=== PATIENT | male | born 1955 | race American Indian/Alaskan Native ===

== ENCOUNTER 2021-01-06 18:01 | Emergency (ER) | payer OTHER ==
--- NOTE | 2021-01-06 22:02 | Emergency Department Report ---
ED Extremity Problem HPI - General Chief complaint: Extremity Injury, Upper Stated complaint: LT HIP PAIN Time Seen by Provider: 01/06/21 21:34 Source: patient Mode of arrival: Ambulatory Limitations: No Limitations - History of Present Illness Initial comments: Patient is a 65-year-old male who presents emergency room complaints of left hip pain that began 2 weeks ago. He denies any fall or injury. 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 He states that he is on his feet all day and frequently bends over. He denies any leg swelling, calf pain, numbness, weakness. He states that he feels the pain early in the morning and at night before he goes to bed. He states that his pain is worse when he first starts to stand up. No past medical history. No allergies to medications. He states he has not seen a doctor in approximately 4 to 5 years. - Related Data Previous Rx's Medication Instructions Recorded Last Taken Type Pantoprazole [Protonix TAB] 40 mg PO BID #60 tablet 09/18/14 Unknown Rx levoFLOXacin [Levaquin TAB] 500 mg PO QDAY #3 tablet 09/18/14 Unknown Rx Acetaminophen [Tylenol] 650 mg PO Q8HR PRN #20 capsule 01/06/21 Unknown Rx Menthol/Camphor [[place] 1 applicatio TP BID #18 oint...g. 01/06/21 Unknown Rx Ointment] amLODIPine 5 mg PO DAILY #30 tab 01/06/21 Unknown Rx methOCARBAMOL [Robaxin TAB] 500 mg PO BID PRN #14 tab 01/06/21 Unknown Rx Allergies Allergy/AdvReac Type Severity Reaction Status Date / Time No Known Allergies Allergy Unverified 09/15/14 17:00 ED Review of Systems ROS: Stated complaint: LT HIP PAIN Other details as noted in HPI Comment: All other systems reviewed and negative ED Past Medical Hx - Past Medical History Previous Medical History?: Yes Hx Hypertension: No Hx Congestive Heart Failure: No Hx Diabetes: No Hx Seizures: No Hx Asthma: Yes (as a child but outgrew) Hx COPD: No Hx HIV: No - Social History Smoking Status: Current Some Day Smoker - Medications Home Medications: Home Medications Medication Instructions Recorded Confirmed Last Taken Type Pantoprazole [Protonix TAB] 40 mg PO BID #60 tablet 01/20/15 Unknown Rx levoFLOXacin [Levaquin TAB] 500 mg PO QDAY #3 tablet 09/18/14 Unknown Rx Acetaminophen [Tylenol] 650 mg PO Q8HR PRN #20 capsule 01/06/21 Unknown Rx Menthol/Camphor [[place] 1 applicatio TP BID #18 oint...g. 01/06/21 Unknown Rx Ointment] amLODIPine 5 mg PO DAILY #30 tab 01/06/21 Unknown Rx methOCARBAMOL [Robaxin TAB] 500 mg PO BID PRN #14 tab 01/06/21 Unknown Rx ED Physical Exam - General Limitations: No Limitations General appearance: alert, in no apparent distress - Head Head exam: Present: atraumatic, normocephalic - Eye Eye exam: Present: normal appearance - ENT ENT exam: Present: mucous membranes moist - Respiratory Respiratory exam: Absent: respiratory distress, accessory muscle use - Extremities Exam Extremities exam: Present: other (mild ttp to the left anterior hip, FROM of the LLE with discomfort upon flexion and internal rotation of the left hip, no leg edema, no calf ttp, neurovascularly intact) - Neurological Exam Neurological exam: Present: alert, oriented X3 - Psychiatric Psychiatric exam: Present: normal affect, normal mood - Skin Skin exam: Present: warm, dry, intact ED Course Vital Signs 01/06/21 01/06/21 20:21 23:22 Temperature 98.3 F Pulse Rate 97 H Respiratory 14 Rate Blood Pressure 174/106 Blood Pressure 181/104 [Right] O2 Sat by Pulse 99 Oximetry ED Medical Decision Making - Radiology Data Radiology results: report reviewed Ordering Physician: RUPINDER ALVAREZ Date of Service: 01/06/21 Procedure(s): XR hip 2-3V LT Accession Number(s): [id number] cc: RUPINDER ALVAREZ Fluoro Time In Minutes: LEFT HIP 2 VIEWS INDICATION / CLINICAL INFORMATION: left hip pain COMPARISON: None available. FINDINGS: BONES / JOINT(S): No acute fracture or subluxation. Mild symmetric DJD at the h ips. SOFT TISSUES: No significant abnormality. ADDITIONAL FINDINGS: None. Signer Name: Axel Matos MD Signed: 01/06/2021 10:32 PM Workstation Name: [id number] Transcribed By: ES Dictated By: Axel Matos MD Electronically Authenticated By: Axel Matos MD Signed Date/Time: 01/06/212231 DD/ 30 TD/TT: - Medical Decision Making Patient is a 65-year-old male who presents emergency room complaints of left hip pain that began 2 weeks ago. He denies any fall or injury. 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 He states that he is on his feet all day and frequently bends over. He denies any leg swelling, calf pain, numbness, weakness. He states that he feels the pain early in the morning and at night before he goes to bed. He states that his pain is worse when he first starts to stand up. No past medical history. No allergies to medications. He states he has not seen a doctor in approximately 4 to 5 years. Vitals with elevated blood pressure, otherwise stable. Patient has never taken blood pressure medication, he states he has not had his blood pressure checked in 4 to 5 years. Patient is not having any symptoms related to his blood pressure, the up-to-date medical literature does not recommend emergently lowering asymptomatic elevated blood pressure. On exam: mild ttp to the left anterior hip, FROM of the LLE with discomfort upon flexion and internal rotation of the left hip, no leg edema, no calf ttp, neurovascularly intact. X-ray left hip: BONES / JOINT(S): No acute fracture or subluxation. Mild symmetric DJD at the hips. SOFT TISSUES: No significant abnormality. ADDITIONAL FINDINGS: None. Discussed all results with patient answered questions. Patient has no clinical signs of DVT, septic joint, gout, acute arterial occlusion. Patient given prescription for Tylenol, Robaxin, [place] balm ointment,amlodipine. Advised patient Please use medication as prescribed. May use ice pack, heating pad, rest, Epsom salt bath. Follow-up with your primary care doctor. Follow-up with orthopedic doctor. Please eat a low-sodium diet. Keep a blood pressure log and take this to the primary care doctor. Return to emergency room for new or worsening symptoms. Critical care attestation.: If time is entered above; I have spent that time in minutes in the direct care of this critically ill patient, excluding procedure time. ED Disposition Clinical Impression: Hip pain, Elevated blood pressure reading Disposition: TO HOME OR SELFCARE Is pt being admited?: No Does the pt Need Aspirin: No Condition: Stable Instructions: Osteoarthritis, Low-Sodium Eating Plan, Hypertension, Adult Additional Instructions: Please use medication as prescribed. May use ice pack, heating pad, rest, Epsom salt bath. Follow-up with your primary care doctor. Follow-up with orthopedic doctor. Please eat a low-sodium diet. Keep a blood pressure log and take this to the primary care doctor. Return to emergency room for new or worsening symptoms. Prescriptions: amLODIPine 5 mg PO DAILY #30 tab methOCARBAMOL [Robaxin TAB] 500 mg PO BID PRN #14 tab PRN Reason: pain Menthol/Camphor [[place] Ointment] 1 applicatio TP BID #18 oint...g. Acetaminophen [Tylenol] 650 mg PO Q8HR PRN #20 capsule PRN Reason: pain Referrals: JEET VENTURA MD [Staff Physician] - 3-5 Days [facility] [Provider Group] - 3-5 Days [facility], [LAB/CONTRACT] - 3-5 Days [facility] [Outside] - 3-5 Days YANIRA GOODE MD [Staff Physician] - 3-5 Days Forms: Work/School Release Form(ED) Time of Disposition: 22:50 Print Language: RWANDAN
--- NOTE | 2021-01-06 22:36 | XRay Report ---
LEFT HIP 2 VIEWS INDICATION / CLINICAL INFORMATION: left hip pain COMPARISON: None available. FINDINGS: BONES / JOINT(S): No acute fracture or subluxation. Mild symmetric DJD at the hips. SOFT TISSUES: No significant abnormality. ADDITIONAL FINDINGS: None. Signer Name: Axel Matos MD Signed: 01/06/2021 10:32 PM Workstation Name: [id number]
[2021-01-06 23:26] VITALS: BP 181/104
== END 2021-01-06 23:21 | disposition home or self-care (01) ==
LOC: ED 18:01
DX: M25.552 Pain in left hip (principal); R03.0 Elevated blood-pressure reading, without diagnosis of hypertension; J45.909 Unspecified asthma, uncomplicated; F17.200 Nicotine dependence, unspecified, uncomplicated; Z79.899 Other long term (current) drug therapy
CPT/HCPCS: 99283

== ENCOUNTER 2021-07-17 09:28 | Emergency (ER) | payer OTHER ==
[2021-07-17 09:37] VITALS: BP 175/111
--- NOTE | 2021-07-17 09:51 | Emergency Department Report ---
<FLACO CAM - Last Filed: 07/17/21 11:18> ED General Adult HPI - General Chief complaint: Abdominal Pain Stated complaint: RIGHT FLANK PAIN PUI?: No Time Seen by Provider: 07/17/21 09:38 Source: patient Mode of arrival: Ambulatory Limitations: No Limitations - History of Present Illness Initial comments: 65-year-old male presents to the emergency department complaining of right lateral chest wall pain and weight loss. The patient states that he has been having pain on his right side for a few days. He feels like the pain is in his ribs, not in his back or in his kidney area. He denies any recent injury or illness, fever or chills, productive cough, hemoptysis, palpitations, shortness of air, or rash. The pain does increase with movement. He is also concerned that he has lost about 60 pounds over the past several months. He states that he is not trying to lose weight but it keeps falling off. He states that he has a good appetite and denies any change in his activity level. He denies any hematochezia or melena, dysuria or hematuria, dizziness, near-syncope or syncope. He has 1/2 pack/day smoker. -: Gradual, days(s) Location: chest Radiation: non-radiation Severity scale (0 -10): 5 Quality: aching Consistency: constant Improves with: none Worsens with: movement Associated Symptoms: cough (Occasional, nonproductive). denies: fever/chills, h eadaches, loss of appetite, nausea/vomiting, shortness of breath, syncope Treatments Prior to Arrival: none - Related Data Previous Rx's Medication Instructions Recorded Last Taken Type Pantoprazole [Protonix TAB] 40 mg PO BID #60 tablet 09/18/14 Unknown Rx levoFLOXacin [Levaquin TAB] 500 mg PO QDAY #3 tablet 09/18/14 Unknown Rx Acetaminophen [Tylenol] 650 mg PO Q8HR PRN #20 capsule 01/06/21 Unknown Rx Menthol/Camphor [[place] 1 applicatio TP BID #18 oint...g. 01/06/21 Unknown Rx Ointment] amLODIPine 5 mg PO DAILY #30 tab 01/06/21 Unknown Rx methOCARBAMOL [Robaxin TAB] 500 mg PO BID PRN #14 tab 01/06/21 Unknown Rx Naproxen Sodium [Naproxen Sodium 550 mg PO BID #20 tablet 07/17/21 Unknown Rx 550mg] metFORMIN [Glucophage] 500 mg PO QDAY #30 tab 07/17/21 Unknown Rx Allergies Allergy/AdvReac Type Severity Reaction Status Date / Time No Known Allergies Allergy Verified 07/17/21 09:31 ED Review of Systems Comment: All other systems reviewed and negative Constitutional: other (Unintentional weight loss) Respiratory: denies: shortness of breath Endocrine: unexplained weight loss ED Past Medical Hx - Past Medical History Hx Hypertension: No Hx Congestive Heart Failure: No Hx Diabetes: No Hx Seizures: No Hx Asthma: Yes (as a child but outgrew) Hx COPD: No Hx HIV: No Additional medical history: BLEEDING ULCERS - Surgical History Past Surgical History?: No - Social History Smoking Status: Current Some Day Smoker - Medications Home Medications: Home Medications Medication Instructions Recorded Confirmed Last Taken Type Pantoprazole [Protonix TAB] 40 mg PO BID #60 tablet 09/18/14 Unknown Rx levoFLOXacin [Levaquin TAB] 500 mg PO QDAY #3 tablet 09/18/14 Unknown Rx Acetaminophen [Tylenol] 650 mg PO Q8HR PRN #20 capsule 01/06/21 Unknown Rx Menthol/Camphor [[place] 1 applicatio TP BID #18 oint...g. 01/06/21 Unknown Rx Ointment] amLODIPine 5 mg PO DAILY #30 tab 01/06/21 Unknown Rx methOCARBAMOL [Robaxin TAB] 500 mg PO BID PRN #14 tab 01/06/21 Unknown Rx Naproxen Sodium [Naproxen Sodium 550 mg PO BID #20 tablet 07/17/21 Unknown Rx 550mg] metFORMIN [Glucophage] 500 mg PO QDAY #30 tab 07/17/21 Unknown Rx ED Physical Exam - General Limitations: No Limitations General appearance: alert, in no apparent distress, obese - Head Head exam: Present: atraumatic, normocephalic - Eye Eye exam: Present: normal appearance - ENT ENT exam: Present: mucous membranes moist - Neck Neck exam: Present: normal inspection - Respiratory Respiratory exam: Present: normal lung sounds bilaterally. Absent: respiratory distress, chest wall tenderness - Cardiovascular Cardiovascular Exam: Present: regular rate, normal rhythm. Absent: systolic murmur, diastolic murmur, rubs, gallop - GI/Abdominal GI/Abdominal exam: Present: soft, normal bowel sounds - Rectal Rectal exam: Present: deferred - Extremities Exam Extremities exam: Present: normal inspection - Back Exam Back exam: Present: normal inspection - Neurological Exam Neurological exam: Present: alert, oriented X3 - Psychiatric Psychiatric exam: Present: normal affect, normal mood - Skin Skin exam: Present: warm, dry, intact, normal color. Absent: rash ED Course - Reevaluation(s) Reevaluation #1: 07/17/21 10:44 Seated in chair without complaints. ED Medical Decision Making - Lab Data Result diagrams: 07/17/21 10:04 07/17/21 10:04 - Medical Decision Making I have discussed all of the findings and treatment options with the patient. He does have an elevated blood sugar, but is not ketotic. His chest x-ray shows no acute abnormalities. His weight loss is concerning, but needs to follow-up with primary care. His right lateral chest wall pain is consistent with musculoskeletal pain. We did discuss treatment options and I have given him strong return precautions. ED Disposition Disposition: 01 HOME / SELF CARE / HOMELESS Is pt being admited?: No Condition: Fair Instructions: Nonspecific Chest Pain, Adult, Hyperglycemia, Chest Wall Pain Prescriptions: metFORMIN [Glucophage] 500 mg PO QDAY #30 tab Naproxen Sodium [Naproxen Sodium 550mg] 550 mg PO BID #20 tablet Referrals: [facility] [Provider Group] - 3-5 Days (Or your doctor) Time of Disposition: 11:28 <PEYTON MORRISON - Last Filed: 07/17/21 14:21> ED Review of Systems ROS: Stated complaint: RIGHT FLANK PAIN Other details as noted in HPI ED Course Vital Signs 07/17/21 09:35 Temperature 98.9 F Pulse Rate 107 H Respiratory 18 Rate Blood Pressure 175/111 O2 Sat by Pulse 98 Oximetry ED Medical Decision Making - Lab Data Result diagrams: 07/17/21 10:04 07/17/21 10:04 Critical care attestation.: If time is entered above; I have spent that time in minutes in the direct care of this critically ill patient, excluding procedure time. ED Disposition Is pt being admited?: No Does the pt Need Aspirin: No
--- NOTE | 2021-07-17 10:34 | XRay Report ---
CHEST 2 VIEWS INDICATION / CLINICAL INFORMATION: right chest wall pain, wt loss. COMPARISON: None available. FINDINGS: SUPPORT DEVICES: None. HEART / MEDIASTINUM: No significant abnormality. LUNGS / PLEURA: No significant pulmonary or pleural abnormality. No pneumothorax. ADDITIONAL FINDINGS: No significant additional findings. IMPRESSION: 1. No acute findings. Signer Name: Inderjit Easley MD Signed: 07/17/2021 10:29 AM Workstation Name: [id number]
[2021-07-17 10:40] LABS: Hematocrit 47.7 % (35.5-45.6); Hemoglobin 15.3 gm/dl (11.8-15.2); Mean Corpuscular HGB Conc 32 % (32-34); Mean Corpuscular Volume 90 fl (84-94); Platelet Count 225 K/mm3 (140-440); Red Blood Count 5.28 M/mm3 (3.65-5.03); Red Cell Distribution Width 13.3 % (13.2-15.2)
[2021-07-17 11:01] LABS: Alanine Aminotransferase 17 units/L (7-56); Albumin 4.3 g/dL (3.9-5); BUN/Creatinine Ratio 19; Blood Urea Nitrogen 15 mg/dL (9-20); Calcium 9.6 mg/dL (8.4-10.2); Hemolysis Index 17
[2021-07-17 11:18] LABS: Bilirubin,Urine NEG (Negative); Blood,Urine NEG (Negative); Color,Urine Yellow (Yellow); Mucus,Urine FEW /HPF; Protein,Urine <15 mg/dL mg/dL (Negative)
[2021-07-17 11:57] LABS: Band Neutrophils # (Manual) 0.3 K/mm3; Myelocytes # (Manual) 0.1 K/mm3; Total Cells Counted 100
[2021-07-17 11:58] LABS: Platelet Estimate Consistent w Auto; RBC Morphology Normal
== END 2021-07-17 11:59 | disposition home or self-care (01) ==
LOC: ED 09:28
DX: R07.89 Other chest pain (principal); M79.18 Myalgia, other site; F17.200 Nicotine dependence, unspecified, uncomplicated; R05.9 Cough, unspecified; R10.9 Unspecified abdominal pain; Z79.899 Other long term (current) drug therapy
CPT/HCPCS: 36415; 71046; 80053; 81001; 85007; 85025; 87086; 99283

== ENCOUNTER 2022-02-02 15:52 | Outpatient (CLI) | payer MEDICARE ==
--- NOTE | 2022-02-02 22:36 | XRay Report ---
BILATERAL KNEE 2 VIEW(S) INDICATION / CLINICAL INFORMATION: RIGHT KNEE PAIN; OSTEOARTHRITIS RIGHT KNEE COMPARISON: None available. FINDINGS: BONES / JOINT(S): No acute fracture or subluxation. Moderately advanced tricompartmental degenerative arthrosis both knees. SOFT TISSUES: No significant abnormality. ADDITIONAL FINDINGS: None. IMPRESSION: 1. Moderately advanced degenerative arthrosis both knees Signer Name: Jan Hartmann MD Signed: 02/02/2022 10:32 PM Workstation Name: [id number]
== END 2022-02-02 15:53 | disposition home or self-care (01) ==
LOC: XRAY 15:52
PROVIDERS: ATTEND Orthopaedic Surgery
DX: M16.0 Bilateral primary osteoarthritis of hip (principal)

== ENCOUNTER 2022-04-07 09:24 | Outpatient (CLI) | payer OTHER ==
--- NOTE | 2022-04-07 11:42 | XRay Report ---
LEFT HIP 2 VIEW(S) INDICATION / CLINICAL INFORMATION: Z02.71 . Disability adjudication. COMPARISON: 01/06/21 FINDINGS: BONES / JOINT(S): No acute fracture or subluxation. Mild left hip degenerative arthrosis is unchanged . Contralateral right hip mild degenerative arthrosis is unchanged. SOFT TISSUES: No significant abnormality. ADDITIONAL FINDINGS: None. IMPRESSION: 1. Mild left hip osteoarthrosis, unchanged. No acute findings. Signer Name: Hudson Hernandez MD Signed: 04/07/2022 11:37 AM Workstation Name: [id number]
== END 2022-04-07 09:25 | disposition home or self-care (01) ==
LOC: XRAY 09:24
PROVIDERS: ATTEND Internal Medicine
DX: M16.12 Unilateral primary osteoarthritis, left hip (principal)

== ENCOUNTER 2022-05-01 09:26 | Outpatient (CLI) | payer MEDICARE ==
--- NOTE | 2022-05-01 11:42 | XRay Report ---
LUMBAR SPINE 5 VIEWS INDICATION / CLINICAL INFORMATION: M54.50 LOW BACK PAIN,UNSPECIFIED. COMPARISON: None available. FINDINGS: BONES / JOINT(S): No acute fracture or subluxation. Scattered DJD is greatest at L4-S1 where changes are mild/moderate. SOFT TISSUES: No significant abnormality. ADDITIONAL FINDINGS: None. Signer Name: Axel Matos MD Signed: 05/01/2022 11:38 AM Workstation Name: [id number]
== END 2022-05-01 09:27 | disposition home or self-care (01) ==
LOC: XRAY 09:26
PROVIDERS: ATTEND Orthopaedic Surgery
DX: M47.817 Spondylosis without myelopathy or radiculopathy, lumbosacral region (principal)
CPT/HCPCS: 72110